=== PATIENT | male | born 1970 | race Caucasian/White ===

== ENCOUNTER 2020-05-18 16:15 | Emergency (ER) | payer SELFPAY ==
[~2020-05-18] VITALS: Ht 172.7 cm; Wt 71.8 kg
[2020-05-18 16:27] VITALS: BP 121/73
--- NOTE | 2020-05-18 16:32 | NUR ---
EKG TRIAGE, RESP ISOLATION.
--- NOTE | 2020-05-18 16:47 | NUR ---
PT TO ROOM 36 W/ C/O "TO CHECK IF I HAVE COVID". DENIES SX. PER PT HAS SX. COUGH, FEVERS, CHILLS, BODY ACHES. PT AGREES WHEN TOLD BY HE HAD SX AND STATES "I DON'T FEEL NOTHING HERE". PT SITTING IN CHAIR W/ AT BEDSIDE. DONA.
== END 2020-05-18 17:57 | disposition home or self-care (01) ==
LOC: ED 17:42
DX: B34.9 Viral infection, unspecified (principal); R00.0 Tachycardia, unspecified; R53.83 Other fatigue
CPT/HCPCS: 93005; 99283